=== PATIENT | female | born 1935 | race Caucasian/White ===

== ENCOUNTER → 2018-01-20 | Outpatient (CLI) | payer MEDICARE ==
[~2018-01-20] MED LIST: ACCUNEB SO1.25 MG/1; ACETAMINOPHEN325 M1 PO; ALBUTEROL2.5 MG/31 INH; ALEVE220 M1; AMLODIPINE BESY10 MG PO; ASPIRIN EC81 M1 PO; ASPIRIN325 PO; CALICUM 500+D1 EACH; CARVEDILOL12.5 MG PO; CIPRO500 MG PO; CIPROFLOXACIN500 M3 PO; FISH OIL 1,2001 EAC4 PO; FISHOIL PO; FUROSEMIDE 40 M40 M1 PO; GABAPENTIN100 MG; GLUCOSAMINE &1 EACH PO; GLUCOSAMINE-CH480 M1 PO; K-DUR 20 MEQ T20 MEQ PO; KRILL OIL500 MG PO; LAMICTAL 25 MG25 M1 PO; LASIX 40 MG TAB40 M1 GT; LEVOTHYROXINE0.05 MG PO; LIPITOR10 MG PO; LOPRESSOR 12.12.5 MG PO; LOPRESSOR 50 MG50 M1 PO; LOPRESSOR25 PO; MEDROLDOSEPACK PO; MIRALAX17 GM PO; MOVANA300 MG; NIASPAN ER 101000 M1; NIASPAN ER 101000 M1 PO; OXYCODONE HCL 55 MG PO; PLAVIX 75 MG TA75 M1 PO; PLAVIX 75 MG TA75 MG PO; PRINIVIL20 MG PO; PROTONIX40 M2 PO; TEKTURNA300 MG PO; ULTRAM 50MG TAB50 MG PO; ZANTAC 150MG T150 M1 PO
== END ==
LOC: M.RAD 11:12
DX: M47.894 Other spondylosis, thoracic region (principal); Z96.611 Presence of right artificial shoulder joint